=== PATIENT | male | born 2000 | race Hispanic/Latino ===

== ENCOUNTER 2019-11-05 | Emergency (ER) | payer SELFPAY ==
--- NOTE | 2019-11-09 08:46 | NUR ---
Unable to reach patient by phone to notify patient of Covid results (negative). Notification letter sent by [facility] standard and registered.
== END 2019-11-05 09:42 | disposition home or self-care (01) | DRG 153 ==
DX: J06.9 Acute upper respiratory infection, unspecified (principal); Z20.828 Contact with and (suspected) exposure to other viral communicable diseases